=== PATIENT | female | born 1960 | race Caucasian/White ===

== ENCOUNTER 2021-04-20 11:38 | Outpatient (CLI) | payer OTHER | END 2021-04-20 11:39 | disposition home or self-care (01) | LOC: CSHRAD 11:38 | PROVIDERS: ATTEND Family Medicine | DX: M54.50 Low back pain, unspecified (principal); M47.816 Spondylosis without myelopathy or radiculopathy, lumbar region | CPT/HCPCS: 72100 ==

== ENCOUNTER 2021-09-21 08:06 | Outpatient (CLI) | payer OTHER | END 2021-09-21 08:07 | disposition home or self-care (01) | LOC: CSHMAMMO 08:06 | PROVIDERS: ATTEND Family Medicine | DX: Z12.31 Encounter for screening mammogram for malignant neoplasm of breast (principal) | CPT/HCPCS: 77063; 77067 ==

== ENCOUNTER 2022-11-16 12:17 | Outpatient (CLI) | payer OTHER | END 2022-11-16 12:18 | disposition home or self-care (01) | LOC: CSHMAMMO 12:17 | PROVIDERS: ATTEND Family Medicine | DX: Z12.31 Encounter for screening mammogram for malignant neoplasm of breast (principal) | CPT/HCPCS: 77063; 77067 ==

== ENCOUNTER 2024-01-11 09:52 | Outpatient (CLI) | payer OTHER | END 2024-01-11 09:53 | disposition home or self-care (01) | LOC: CSHMAMMO 09:52 | PROVIDERS: ATTEND Family Medicine | DX: Z12.31 Encounter for screening mammogram for malignant neoplasm of breast (principal) | CPT/HCPCS: 77067 ==